=== PATIENT | female | born 1945 | race Caucasian/White ===

== ENCOUNTER 2018-06-16 09:49 | Emergency (ER) | payer MEDICARE ==
[2018-06-16 11:01] VITALS: BP 143/67
--- NOTE | 2018-06-16 11:44 | UC ---
Knee Pain HPI - HPI Summary HPI Summary: left knee pain x 2 days s/p fall 2 days ago injury to her left knee, right side of lower back and neck pain is sharp , no radiation worse with walking, better with rest,. mild swelling - History of Current Complaint Chief Complaint: UCLowerExtremity Stated Complaint: LOWER BACK/LEFT LEG/KNEE PAIN Time Seen by Provider: 06/16/18 10:42 Hx Obtained From: Patient Onset/Duration: Sudden Onset, Lasting Days - 2, Still Present Severity Initially: Moderate Severity Currently: Moderate Pain Intensity: 3 Character: Aching, Throbbing Aggravating Factor(s): Movement, Weight Bearing, Prolonged Standing, Stairs Alleviating Factor(s): Cold Associated Signs And Symptoms: Positive: Swelling, Weakness. Negative: Redness , Bruising, Fever, Numbness, Tingling - Allergies/Home Medications Allergies/Adverse Reactions: Allergies Allergy/AdvReac Type Severity Reaction Status Date / Time pregabalin [From Lyrica] Allergy Hallucinati Verified 06/16/18 10:43 ons Home Medications: Home Medications 2nd Blood Pressure Med 1 tab PO DAILY 06/16/18 [History Confirmed 06/16/18] Amlodipine Besylate [Norvasc] 10 mg PO DAILY 06/16/18 [History Confirmed ] Aspirin [Aspir-Low] 81 mg PO DAILY 06/16/18 [History Confirmed 06/16/18] Cholecalciferol TAB* [Vitamin D TAB*] 400 unit PO DAILY 06/16/18 [History Confirmed 06/16/18] Hydrochlorothiazide TAB* [Hydrodiuril TAB*] 25 mg PO DAILY 06/16/18 [History Confirmed 06/16/18] Ibuprofen TAB* [Motrin TAB* 800 MG] 800 mg PO Q6H PRN 06/16/18 [History Confirmed 06/16/18] Lovastatin [Altoprev] 20 mg PO DAILY 06/16/18 [History Confirmed 06/16/18] [place]-3S/Dha/Epa/Fish Oil [Fish Oil 1,200 mg Softgel] 1 each PO DAILY 06/16/18 [ History Confirmed 06/16/18] metFORMIN* [Glucophage 500 MG TAB *] 500 mg PO BID 06/16/18 [History Confirmed 06/16/18] PMH/Surg Hx/FS Hx/Imm Hx Endocrine History: Diabetes Cardiovascular History: Hypertension - Surgical History Surgical History: Yes Surgery Procedure, Year, and Place: Tonsillectomy, Knee arthroscopy, Half of thyroidectomy,cataract - Family History Known Family History: Positive: Hypertension, Diabetes - Social History Alcohol Use: Daily Substance Use Type: None Smoking Status (MU): Former Smoker When Did the Patient Quit Smoking/Using Tobacco: 2005 Review of Systems All Other Systems Reviewed And Are Negative: Yes Constitutional: Positive: Negative Skin: Positive: Negative Eyes: Positive: Negative ENT: Positive: Negative Musculoskeletal: Positive: Arthralgia Is Patient Immunocompromised?: No Physical Exam Triage Information Reviewed: Yes Appearance: Pain Distress, Obese Vital Signs: Initial Vital Signs Temp 98.2 F 06/16/18 10:54 Pulse 74 06/16/18 10:54 Resp 14 06/16/18 10:54 BP 143/67 06/16/18 10:54 Pulse Ox 99 06/16/18 10:54 Vital Signs Reviewed: Yes Eye Exam: Normal Eyes: Positive: Conjunctiva Clear ENT: Positive: Normal ENT inspection, Hearing grossly normal, Pharynx normal Neck: Positive: Supple, No Lymphadenopathy, Tenderness @ Respiratory: Positive: Chest non-tender, Lungs clear, Normal breath sounds Cardiovascular: Positive: RRR, No Murmur, Pulses Normal Abdominal Exam: Normal Abdomen Description: Positive: Nontender, Soft Bowel Sounds: Positive: Present Musculoskeletal: Positive: Other: - left knee: mild swelling, no effusion, diffuse tenderness, pain with flexion right lower back : no swelling, no burising, mild tenderness, good ROM Diagnostics - Laboratory Diagnostic Studies Completed/Ordered: left knee: 4 views of left knee demonstrates joint space narrowing in the lateral compartment with. osteophyte formation. Small joint effusion is noted. No fracture is identified. IMPRESSION : Joint space narrowing in the lateral compartment of the left knee. Knee Pain Course/Dx - Differential Dx/Diagnosis Provider Diagnosis: Left knee sprain, Strain of fascia of lower back Discharge - Sign-Out/Discharge Documenting (check all that apply): Patient Departure All imaging exams completed and their final reports reviewed: Yes - Discharge Plan Condition: Stable Disposition: HOME Prescriptions: Naproxen [Naproxen 500 mg tab] 500 mg PO BID #14 tablet Patient Education Materials: Low Back Strain (ED), Swollen Knee Joint (ED), Neck Pain (ED) Referrals: Sarah Da Silva MD [Primary Care Provider] - 7 Days - Billing Disposition and Condition Condition: STABLE Disposition: Home
== END 2018-06-16 11:52 | disposition home or self-care (01) ==
LOC: UCCORT 09:49
DX: S83.92XA Sprain of unspecified site of left knee, initial encounter (principal); S39.012A Strain of muscle, fascia and tendon of lower back, initial encounter; M54.2 Cervicalgia; E11.9 Type 2 diabetes mellitus without complications; I10 Essential (primary) hypertension; Z79.84 Long term (current) use of oral hypoglycemic drugs; Z88.8 Allergy status to other drugs, medicaments and biological substances; Z79.899 Other long term (current) drug therapy; Z79.82 Long term (current) use of aspirin; Z87.891 Personal history of nicotine dependence; W19.XXXA Unspecified fall, initial encounter; Y92.9 Unspecified place or not applicable
CPT/HCPCS: 99212; G0463